=== PATIENT | female | born 2000 | race Caucasian/White ===

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

== ENCOUNTER 2020-06-27 14:45 | Emergency (ER) | payer OTHER ==
[~2020-06-27] VITALS: Ht 167.6 cm; Wt 95.3 kg
[~2020-06-27 14:45] MED LIST changes: +ZOFRAN4 MG PO
[2020-06-27] MEDS ORDERED: IBUPROFEN 800800 MG PO (16:07)
[2020-06-27] MEDS ORDERED: NORCO5 PO (16:07)
[2020-06-27 17:24] VITALS: BP 131/83
== END 2020-06-27 17:30 | disposition home or self-care (01) ==
LOC: ER 14:45
DX: S82.61XA Displaced fracture of lateral malleolus of right fibula, initial encounter for closed fracture (principal); W10.8XXA Fall (on) (from) other stairs and steps, initial encounter; Y93.89 Activity, other specified; Y92.89 Other specified places as the place of occurrence of the external cause; Y99.8 Other external cause status